=== PATIENT | female | born 1950 | race Caucasian/White ===

== ENCOUNTER 2017-09-29 13:52 | Outpatient (CLI) | payer MEDICARE ==
--- NOTE | 2017-09-29 16:41 | MMO ---
BILATERAL SCREENING MAMMOGRAM: Date: 09/29/17 HISTORY: Screening. COMPARISON: Mammograms from 2014, 2013, and 2012. TECHNIQUE: Bilateral screening CC and MLO mammograms. This patient's mammogram was interpreted with the assistance of computer-aided detection. FINDINGS: There are scattered fibroglandular densities. Benign calcifications both breasts. Biopsy clips right breast. IMPRESSION: BIRADS 2: Benign Finding(s) Continued annual mammographic screening is recommended. POS: [facility]
== END 2017-09-29 13:53 | disposition home or self-care (01) ==
LOC: MAMMO 13:52
PROVIDERS: ATTEND Family Medicine
DX: Z12.31 Encounter for screening mammogram for malignant neoplasm of breast (principal)
CPT/HCPCS: 77067; G0202

== ENCOUNTER 2019-08-03 13:19 | Outpatient (CLI) | payer MEDICARE ==
--- NOTE | 2019-08-03 13:37 | RAD ---
EXAM: Chest 2 views: HISTORY: Dyspnea COMPARISON: 05/22/2015 FINDINGS: There is a normal-sized cardiomediastinal silhouette. There is no evidence of consolidation, mass, or pleural effusion. The bones are unremarkable. IMPRESSION: No evidence of acute cardiopulmonary disease
== END 2019-08-03 13:20 | disposition home or self-care (01) ==
LOC: RAD 13:19
PROVIDERS: ATTEND Internal Medicine Critical Care Medicine
DX: R06.00 Dyspnea, unspecified (principal)
CPT/HCPCS: 71046

== ENCOUNTER 2019-08-11 12:48 | Outpatient (CLI) | payer MEDICARE ==
--- NOTE | 2019-08-11 13:44 | MMO ---
Bilateral MAMMO Bilat Screen [facility]. CLINICAL HISTORY: Patient is 69 years old and is seen for screening. The patient has no family history of breast cancer. The patient has no personal history of cancer. The patient has a history of right Stereotatic Biopsy in 2011 - benign, left needle biopsy in 1981 - benign and bilateral needle biopsy in 2000 - benign. VIEWS: The views performed were: bilateral craniocaudal with tomosynthesis and bilateral mediolateral oblique with tomosynthesis. FILMS COMPARED: The present examination has been compared to prior imaging studies performed at [facility] on 02/10/2012, 02/16/2013, 05/28/2015 and 09/29/2017. MAMMOGRAM FINDINGS: The breasts are heterogeneously dense, which could obscure a lesion on mammography. There are stable benign appearing calcifications seen in both breasts. There are no suspicious masses, suspicious calcifications, or new areas of architectural distortion. IMPRESSION: THERE IS NO MAMMOGRAPHIC EVIDENCE OF MALIGNANCY. A ROUTINE FOLLOW-UP MAMMOGRAM IN 1 YEAR IS RECOMMENDED. THE RESULTS OF THIS EXAM WERE SENT TO THE PATIENT. ACR BI-RADS Category 2 - Benign finding MAMMOGRAPHY NOTE: 1. A negative mammogram report should not delay a biopsy if a dominant of clinically suspicious mass is present. 2. Approximately 10% to 15% of breast cancers are not detected by mammography. 3. Adenosis and dense breasts may obscure an underlying neoplasm. Reported by: CORY GODWIN MD Electonically Signed: [id number]
== END 2019-08-11 12:49 | disposition home or self-care (01) ==
LOC: BICMAMMO 12:48
PROVIDERS: ATTEND Family Medicine
DX: Z12.31 Encounter for screening mammogram for malignant neoplasm of breast (principal)
CPT/HCPCS: 77063; 77067

== ENCOUNTER 2020-08-14 13:12 | Outpatient (CLI) | payer MEDICARE ==
--- NOTE | 2020-08-14 15:09 | MMO ---
Bilateral MAMMO Bilat Screen [facility]. CLINICAL HISTORY: Patient is 70 years old and is seen for screening. The patient has no family history of breast cancer. The patient has no personal history of cancer. The patient has a history of right Stereotatic Biopsy in 2011 - benign, left needle biopsy in 1981 - benign and bilateral needle biopsy in 2000 - benign. VIEWS: The views performed were: bilateral craniocaudal with tomosynthesis and bilateral mediolateral oblique with tomosynthesis. FILMS COMPARED: The present examination has been compared to prior imaging studies performed at [facility] on 02/16/2013, 05/28/2015, 09/29/2017 and 08/11/2019. This study has been interpreted with the assistance of computer-aided detection. MAMMOGRAM FINDINGS: The breasts are heterogeneously dense, which could obscure a lesion on mammography. Finding 1: There are stable benign appearing calcifications seen in both breasts. Finding 2: There are stable benign appearing densities seen in both breasts. There are no suspicious masses, suspicious calcifications, or new areas of architectural distortion. IMPRESSION: THERE IS NO MAMMOGRAPHIC EVIDENCE OF MALIGNANCY. A ROUTINE FOLLOW-UP MAMMOGRAM IN 1 YEAR IS RECOMMENDED. THE RESULTS OF THIS EXAM WERE SENT TO THE PATIENT. ACR BI-RADS Category 2 - Benign finding MAMMOGRAPHY NOTE: 1. A negative mammogram report should not delay a biopsy if a dominant of clinically suspicious mass is present. 2. Approximately 10% to 15% of breast cancers are not detected by mammography. 3. Adenosis and dense breasts may obscure an underlying neoplasm. Reported by: RM DE LUNA MD Electonically Signed: [id number]
== END 2020-08-14 13:13 | disposition home or self-care (01) ==
LOC: BICMAMMO 13:12
PROVIDERS: ATTEND Family Medicine
DX: Z12.31 Encounter for screening mammogram for malignant neoplasm of breast (principal); Z91.89 Other specified personal risk factors, not elsewhere classified
CPT/HCPCS: 77063; 77067

== ENCOUNTER 2022-02-02 01:54 | Emergency (ER) | payer MEDICARE, OTHER ==
[2022-02-02] MEDS ORDERED: Ketorolac Tromethamine 30 MG/ML VIAL ONE (03:44)
[2022-02-02] MEDS ORDERED: HYDROcodone/Acetaminophen 5/325 mg Tablet ONE (04:37)
== END 2022-02-02 05:53 | disposition home or self-care (01) ==
LOC: ERS 01:54
DX: S52.501A Unspecified fracture of the lower end of right radius, initial encounter for closed fracture (principal); S52.611A Displaced fracture of right ulna styloid process, initial encounter for closed fracture; R05.9 Cough, unspecified; I10 Essential (primary) hypertension; E78.5 Hyperlipidemia, unspecified; J44.9 Chronic obstructive pulmonary disease, unspecified; E11.9 Type 2 diabetes mellitus without complications; E66.9 Obesity, unspecified; W01.0XXA Fall on same level from slipping, tripping and stumbling without subsequent striking against object, initial encounter; Z68.45 Body mass index [BMI] 70 or greater, adult; Z87.19 Personal history of other diseases of the digestive system; Z87.891 Personal history of nicotine dependence
CPT/HCPCS: 71045; 96372; J1885

== ENCOUNTER 2022-07-10 14:27 | Outpatient (CLI) | payer MEDICARE | END 2022-07-10 14:28 | disposition home or self-care (01) | LOC: RAD 14:27 | PROVIDERS: ATTEND Internal Medicine Critical Care Medicine | DX: R06.00 Dyspnea, unspecified (principal) | CPT/HCPCS: 71046 ==

== ENCOUNTER 2023-03-13 12:30 | Outpatient (CLI) | payer MEDICARE | END 2023-03-13 12:31 | disposition home or self-care (01) | LOC: BICMAMMO 12:30 | PROVIDERS: ATTEND Family Medicine | DX: Z13.820 Encounter for screening for osteoporosis (principal); M81.0 Age-related osteoporosis without current pathological fracture; M85.851 Other specified disorders of bone density and structure, right thigh; Z78.0 Asymptomatic menopausal state | CPT/HCPCS: 77080 ==

== ENCOUNTER 2023-10-20 15:57 | Emergency (ER) | payer MEDICARE ==
[~2023-10-20 15:57] MED LIST: Iopamidol-370 76% 500 ML MDV (1 ML CHARGE) ONE
[2023-10-20 16:32] LABS: #Eosinphils 0.1 thou/uL (0.0-0.7); #Monocytes 0.4 thou/uL (0.11-0.59); #Neutrophils 7.8 thou/uL (1.40-6.50); %Basophils 0.4 % (0.0-1.0); %Eosinophils 0.8 % (0.0-10.0); %Lymphocytes 18.1 % (21.0-51.0); %Neutrophils 76.4 % (42.0-75.0); Hematocrit 35.2 % (36.0-47.0); Hemoglobin 11.1 g/dL (12.0-16.0); Mean Corpuscular HGB CONC 31.5 g/dL (32.0-36.0); Mean Corpuscular Hemoglobin 26.5 pg (27.0-31.0); Mean Platelet Volume 9.3 fL (7.4-10.4); Platelet Count 242 10x3/uL (130-400); Red Blood Cell (RBC) Count 4.19 mill/uL (4.20-5.40); White Blood Cell (WBC) Count 10.2 10x3/uL (4.8-10.8)
[2023-10-20 16:55] LABS: ALT (SGPT) 11 U/L (8-55); AST (SGOT) 13 U/L (5-34); Albumin 4.4 g/dL (3.4-4.8); Alkaline Phosphatase 52 U/L (40-110); Anion Gap 13 mmol/L (10-20); BUN (Urea Nitrogen) 20 mg/dL (9.8-20.1); Bilirubin, Total 0.6 mg/dL (0.2-1.2); Calc. Creatinine Clearance 0 mL/min (70-130); Calcium 9.3 mg/dL (7.8-10.44); Carbon Dioxide 24 mmol/L (23-31); Chloride 102 mmol/L (98-107); Estimated GFR 68; Globulin 3.1 g/dL (2.4-3.5); Glucose 146 mg/dL (83-110); Potassium 3.8 mmol/L (3.5-5.1); Protein, Total 7.5 g/dL (5.8-8.1); Sodium 135 mmol/L (136-145)
[2023-10-20] MEDS ORDERED: diphenhydrAMINE 50 MG/ML VIAL ONE (18:01)
[2023-10-20] MEDS ORDERED: Morphine 4 MG/ML VIAL ONE ×2 (18:01→19:20)
[2023-10-20] MEDS ORDERED: Famotidine/PF 20 mg/2ml Vial ONE (18:02)
[2023-10-20] MEDS ORDERED: Ondansetron PF 4 MG/2 ML Vial ONE ×2 (18:02→18:57)
[2023-10-20] MEDS ORDERED: methylPREDNISolone Sod Succ 40 MG VIAL ONE (18:02)
[2023-10-20 18:15] LABS: Bacteria/HPF None Seen HPF (None Seen); Bilirubin Negative (Negative); Blood, Urine Negative (Negative); CAUTI Indications for Culture Pelvic or flank pain; Clarity Clear (Clear); Glucose, Urine (Dipstick) 50 mg/dL (Negative); Ketone, Urine Trace mg/dL (Negative); Leukocyte Negative Leu/uL (Negative); Nitrite Negative (Negative); Protein, Urine (Dipstick) 30 mg/dL (Neg-Trace); RBC/HPF 0-3 HPF (0-3); Specific Gravity, Urine 1.018 (1.002-1.036); Squamous Epithelial 0-3 HPF (0-3); Urobilinogen Normal mg/dL (Less than 2); WBC/HPF 0-3 HPF (0-3); pH, Urine 7.5 (5.0-9.0)
[2023-10-20 18:19] LABS: Urine Culture Reflex No No
== END 2023-10-20 20:39 | disposition home or self-care (01) ==
LOC: ERS 15:57
DX: R10.32 Left lower quadrant pain (principal); R11.2 Nausea with vomiting, unspecified; I10 Essential (primary) hypertension; E11.9 Type 2 diabetes mellitus without complications; K58.9 Irritable bowel syndrome, unspecified; E66.9 Obesity, unspecified; Z87.891 Personal history of nicotine dependence
CPT/HCPCS: 36415; 74177; 80053; 81001; 83605; 83690; 85025; 93005; 96374; 96375; 96376; J1200; J2270; J2405; J2920; Q9967; S0028

== ENCOUNTER 2024-08-18 06:57 | Outpatient (CLI) | payer MEDICARE | END 2024-08-18 06:58 | disposition home or self-care (01) | LOC: BICULT 06:57 | PROVIDERS: ATTEND Internal Medicine Nephrology | DX: I12.9 Hypertensive chronic kidney disease with stage 1 through stage 4 chronic kidney disease, or unspecified chronic kidney disease (principal); N18.2 Chronic kidney disease, stage 2 (mild) | CPT/HCPCS: 76770; 93975 ==